=== PATIENT | male | born 1970 | race Two or more races ===

== ENCOUNTER 2018-11-27 12:28 | Observation (INO) | payer OTHER ==
[~2018-11-27] VITALS: Ht 180.3 cm; Wt 151.8 kg
[2018-11-27] MEDS ORDERED: ASPIRIN 81 MG TABLET CHEW PO ONE (13:00)
--- NOTE | 2018-11-27 13:09 | NUR ---
FROM LOBBY TO ROOM AT THIS TIME
[2018-11-27 13:11] LABS: BASOPHILS # (AUTO) 0.04 x10^3/uL (0-0.1); BASOPHILS % (AUTO) 0 % (0-1); EOSINOPHILS # (AUTO) 0.16 x10^3/uL (0-0.4); EOSINOPHILS % (AUTO) 2 % (1-7); LYMPHOCYTES % (AUTO) 25 % (22-44); MD NO; MEAN CORPUSCULAR HGB CONC 32.9 g/dL (33.2-36.2); MEAN CORPUSCULAR VOLUME 91.3 fL (81-97); MEAN PLATELET VOLUME 8.8 fL (7.4-10.4); MONOCYTES # (AUTO) 0.55 x10^3/uL (0.2-0.8); MONOCYTES % (AUTO) 6 % (2-9); NEUTROPHILS # (AUTO) 5.97 x10^3/uL (1.8-6.8); NEUTROPHILS % (AUTO) 67 % (42-75); PLATELET COUNT 180 x10^3/uL (130-400); RED BLOOD COUNT 5.36 x10^6/uL (4.38-5.82); RED CELL DISTRIBUTION WIDTH 13.7 % (9.4-14.8)
[2018-11-27 13:23] LABS: ALBUMIN 3.9 g/dL (3.4-5.0); ANION GAP 5 mmol/L (5-15); CALCIUM 8.7 mg/dL (8.5-10.1); CHLORIDE 111 mmol/L (98-107); CREATININE 0.95 mg/dL (0.7-1.3)
[2018-11-27 13:27] LABS: TROPONIN I < 0.015 ng/mL (0.000-0.045)
[2018-11-27] MEDS: PLEASE ENTER ALLERGIES MC SCH ×2 (13:30→15:36)
[2018-11-27] MEDS ORDERED: ASPIRIN 81 MG TABLET CHEW ONE (13:31)
--- NOTE | 2018-11-27 13:52 | NUR ---
RECIVED BEDSIDE REPORT FROM MAGALI PAINTING.
--- NOTE | 2018-11-27 14:00 | NUR ---
DISCUSSED PT ASSESSMENT WITH DR KNOX. MADDI CHAUHAN AT THIS TIME
--- NOTE | 2018-11-27 14:22 | NUR ---
PT RESTING ON GURNEY. NO ACUTE DISTRESS NOTED. BLANKET OFFERED, PT REFUSED. FAMLIY BEDSIDE. PT STATES THE EDEMA IN LOWER EXTREMITIES HAS BEEN FOR ABOUT A WEEK. NO NEEDS REQUESTED AT THIS TIME. PT ALSO STATES HE DOESN'T TAKE MEDICATIONS PRESCRIBED FROM A
--- NOTE | 2018-11-27 15:37 | NUR ---
PT RESTING ON GURNEY. FAMILY BEDSIDE. NO NEEDS REQUESTED AT THIS TIME. PT AND DAUGHTER VERBALIZED UNDERSTANDING REGARDING POC. MED ADMINISTERED PER EMAR
--- NOTE | 2018-11-27 16:29 | NUR ---
pt resting on gurney. no acute distress noted. family bedside. awaiting bed assignment.
[2018-11-27] MEDS ORDERED: GUAIFENESIN/DM 200-20MG, 10ML UDC PO PRN (16:30)
[2018-11-27] MEDS ORDERED: LIDODERM 5% PATCH TD PRN (16:30)
[2018-11-27] MEDS ORDERED: ACETAMINOPHEN 325 MG TABLET PO PRN (16:30)
[2018-11-27] MEDS ORDERED: LABETALOL 5MG/ML, 20ML IVPush PRN (16:30)
[2018-11-27] MEDS ORDERED: hydrALAzine 20 MG/ML, 1ML IVPush PRN (16:30)
[2018-11-27] MEDS ORDERED: ONDANSETRON ODT 4 MG PO PRN (16:30)
[2018-11-27] MEDS ORDERED: DOCUSATE 100 MG CAPSULE PO PRN (16:30)
[2018-11-27 17:23] LABS: TROPONIN I < 0.015 ng/mL (0.000-0.045)
--- NOTE | 2018-11-27 17:24 | NUR ---
REPORT TO MAGALI GOSS. ALL QUESTIONS ANSWERED
[2018-11-27 17:29] LABS: HEMOGLOBIN A1C 5.7 % (4.2-6.3)
--- NOTE | 2018-11-27 17:37 | NUR ---
PT TRANSFERRED TO FLOOR. PT LEFT WITH ALL PERSONAL BELONGINGS.
[2018-11-27 17:39] VITALS: BP 145/91
[2018-11-27] MEDS ORDERED: FUROSEMIDE 20 MG/2 ML IV SCH (18:30)
[2018-11-27 18:34] VITALS: BP 148/88
[2018-11-27 23:18] LABS: TROPONIN I < 0.015 ng/mL (0.000-0.045)
[2018-11-28 01:13] VITALS: BP 144/87
[2018-11-28 01:18] VITALS: BP 147/91
[2018-11-28 01:23] VITALS: BP 149/94
[2018-11-28 05:50] LABS: BASOPHILS # (AUTO) 0.02 x10^3/uL (0-0.1); BASOPHILS % (AUTO) 0 % (0-1); EOSINOPHILS # (AUTO) 0.15 x10^3/uL (0-0.4); EOSINOPHILS % (AUTO) 2 % (1-7); LYMPHOCYTES % (AUTO) 22 % (22-44); MD NO; MEAN CORPUSCULAR HEMOGLOBIN 30.7 pg (27.5-34.5); MEAN CORPUSCULAR HGB CONC 33.6 g/dL (33.2-36.2); MEAN CORPUSCULAR VOLUME 91.3 fL (81-97); MEAN PLATELET VOLUME 9.3 fL (7.4-10.4); MONOCYTES # (AUTO) 0.66 x10^3/uL (0.2-0.8); MONOCYTES % (AUTO) 7 % (2-9); NEUTROPHILS # (AUTO) 6.61 x10^3/uL (1.8-6.8); NEUTROPHILS % (AUTO) 69 % (42-75); PLATELET COUNT 166 x10^3/uL (130-400); RED BLOOD COUNT 5.02 x10^6/uL (4.38-5.82); RED CELL DISTRIBUTION WIDTH 13.8 % (9.4-14.8)
[2018-11-28 05:51] LABS: CHLORIDE 112 mmol/L (98-107)
[2018-11-28 06:01] LABS: ANION GAP 3 mmol/L (5-15); CALCIUM 8.4 mg/dL (8.5-10.1); CHOL/HDL RATIO 5.1; CHOLESTEROL, TOTAL 169 mg/dL (140-239); CREATININE 0.91 mg/dL (0.7-1.3); HDL CHOL % 20 % (26-37); HDL CHOLESTEROL (DIRECT) 33 mg/dL (40-60); LDL CHOLESTEROL,CALCULATED 111 mg/dL (54-169); LDL/HDL RATIO 3.4 (0.5-3.0); TRIGLYCERIDES 124 mg/dL (50-200); VLDL CHOLESTEROL 25 mg/dL (0-25)
[2018-11-28] MEDS ORDERED: FUROSEMIDE 20 MG/2 ML IV SCH (07:30)
[2018-11-28] MEDS ORDERED: REGADENOSON 0.4 MG/5 ML SYRINGE ONE (08:48)
[2018-11-28 11:00] VITALS: BP 160/101
[2018-11-28 14:03] VITALS: BP 149/92
[2018-11-28] MEDS ORDERED: LISI5TAB7 PO (15:14)
[2018-11-28] MEDS ORDERED: CHLO25TA PO (15:14)
== END 2018-11-28 17:00 | disposition home or self-care (01) ==
LOC: ED 15:49 → 4WST 17:37 → INTOOBSV 17:37 → 4WST 21:07 → DCLOUNGE 11-28 16:36
PROVIDERS: ADMIT Internal Medicine; ATTEND Internal Medicine
DX: R06.02 Shortness of breath (principal); I16.0 Hypertensive urgency; R60.0 Localized edema; E66.9 Obesity, unspecified; Z68.42 Body mass index [BMI] 45.0-49.9, adult
CPT/HCPCS: 36415; 71045; 78452; 80048; 80061; 82040; 83036; 83880; 84443; 84484; 85025; 93005; 93017; 93306; 93970; 96374; 99285; A9502; C9898; G0378; J1940; J2785